=== PATIENT | male | born 1965 | race Caucasian/White ===

== ENCOUNTER → 2016-04-18 | Day surgery (SDC) | payer MEDICARE, OTHER ==
[~2016-04-18] VITALS: Ht 190.5 cm; Wt 82.1 kg
[~2016-04-18] MED LIST: ASPIRIN325 MG PO; CRESTOR5 MG PO; KEFLEX500 MG PO; LISINOPRIL20 MG PO; NEURONTIN 400400 MG PO; NORCO 10-325 T1 EACH PO; VITAMIN C 500500 MG PO; ZOFRAN4 MG PO
== END | disposition home or self-care (01) ==
LOC: OR 07:45
PROVIDERS: Podiatrist Foot & Ankle Surgery
PROC: 0QBN0ZZ Excision of Right Metatarsal, Open Approach (ICD-10-PCS; 2016-04-18)
PROC: 3E0T3TZ Introduction of Destructive Agent into Peripheral Nerves and Plexi, Percutaneous Approach (ICD-10-PCS; 2016-04-18)
PROC: 0JNQ0ZZ Release Right Foot Subcutaneous Tissue and Fascia, Open Approach (ICD-10-PCS; 2016-04-18)
PROC: 01NG0ZZ Release Tibial Nerve, Open Approach (ICD-10-PCS; principal; 2016-04-18 12:15)
DX: G57.51 Tarsal tunnel syndrome, right lower limb (principal); M89.9 Disorder of bone, unspecified; M19.071 Primary osteoarthritis, right ankle and foot; G58.8 Other specified mononeuropathies; M72.2 Plantar fascial fibromatosis; M54.5 Low back pain; G89.29 Other chronic pain; I10 Essential (primary) hypertension; E78.2 Mixed hyperlipidemia; M13.871 Other specified arthritis, right ankle and foot; Z90.49 Acquired absence of other specified parts of digestive tract; Z87.442 Personal history of urinary calculi; Z82.49 Family history of ischemic heart disease and other diseases of the circulatory system; Z88.2 Allergy status to sulfonamides; Z83.3 Family history of diabetes mellitus
CPT/HCPCS: 36415; 80048; 85027; J0690; J0702; J2250; J2795; J3010; J3370; J7120